=== PATIENT | female | born 1950 | race Two or more races ===

== ENCOUNTER 2020-06-10 13:40 | Emergency (ER) | payer OTHER ==
[~2020-06-10] VITALS: Ht 152.4 cm; Wt 84.4 kg
[2020-06-10] MEDS ORDERED: VERELAN120 MG PO (13:56)
[2020-06-10] MEDS ORDERED: CANDESARTAN-HC1 EAC2 PO (13:57)
[2020-06-10] MEDS ORDERED: MONTELUKAST SODI4 M1 (13:57)
[2020-06-10] MEDS ORDERED: CRESTOR40 MG PO (13:57)
[2020-06-10] MEDS ORDERED: SYNTHROID100 MCG PO (13:57)
== END 2020-06-10 19:18 | disposition home or self-care (01) ==
LOC: ER 13:40
DX: K80.80 Other cholelithiasis without obstruction (principal); R10.11 Right upper quadrant pain